=== PATIENT | female | born 1935 | race Caucasian/White ===

== ENCOUNTER 2021-09-14 13:14 | Emergency (ER) | payer MEDICARE, SELFPAY ==
[2021-09-14 13:47] VITALS: BP 157/73; PULSE 86; RESP 16; TEMP 37; O2SAT 99
--- NOTE | 2021-09-14 13:51 | ED.EXTPRO ---
HPI - Extremity Problem General Chief complaint: Extremity Injury, Upper Stated complaint: right arm pain Time Seen by Provider: 09/14/21 13:50 Source: patient Mode of arrival: ambulatory Limitations: no limitations History of Present Illness HPI Narrative: Ms. Lopez is a 86-year-old female patient presenting to the clinic today with complaints of right arm pain x3 days. She denies any known injury but she reports the pain is right over her biceps muscles. Related Data Home Medications Medication Instructions Recorded Confirmed apixaban 5 mg tablet (Eliquis) 1 tablet PO BID 09/14/21 09/14/21 Allergies Allergy/AdvReac Type Severity Reaction Status Date / Time No Known Allergies Allergy Verified 09/14/21 13:30 Review of Systems Review of Systems: Pertinent positives per HPI. Patient denies any fever, chills, rash, headache, visual changes, dizziness, cough, runny nose, sore throat, shortness of breath, chest pain, palpitations, nausea, vomiting, diarrhea, constipation, abdominal pain, or any urinary issues. [facility] Family History Family History Other Family history of malignant neoplasm Social History Social History Smoking status: Never smoker Alcohol intake: current Comments At the time of my signature, I reviewed and agree with the nursing past medical, surgical, social, and family history. There is no relevant family history pertinent to the patient complaint. Exam Narrative: General: Well-developed, well nourished, in no apparent distress Head: Normocephalic, atraumatic. Cardio: Regular rate and rhythm, s1 and s2 normal, no murmur appreciated. Resp: Clear to auscultation bilaterally, no rhonchi, rales, wheezing or rubs. Musculoskeletal: No deformity, tender to palpation over the biceps tendon with mild knot in this area, grossly normal range of motion, muscle strength strong and equal, peripheral pulse strong, no edema, no cyanosis, normal gait and station Course Course Emergency Course: Portions of this record may have been created with voice recognition software. Level of Care: Express Care Visit Vital Signs Vital signs: Vital Signs Temperature 37.0 C 09/14/21 13:47 Pulse Rate 86 09/14/21 13:47 Respiratory Rate 16 09/14/21 13:47 Blood Pressure 157/73 H 09/14/21 13:47 Pulse Oximetry 99 09/14/21 13:47 Oxygen Delivery Room Air 09/14/21 13:47 Temperature 37.0 C 09/14/21 13:47 Pulse Rate 86 09/14/21 13:47 Respiratory Rate 16 09/14/21 13:47 Blood Pressure 157/73 H 09/14/21 13:47 Pulse Oximetry 99 09/14/21 13:47 Oxygen Delivery Room Air 09/14/21 13:47 Vital signs reviewed MDM - Extremity (Nontraumatic) MDM Narrative Medical decision making narrative: At the time of assessment patient is resting comfortably on the exam table. I suspect the patient has biceps tendinitis. Supportive measures were discussed to the patient I will send in a prescription for some prednisone and have her follow-up with her PCP of symptoms persist to get an ultrasound completed. She voiced understanding of discharge instructions and agrees to the treatment plan. Discharge Plan Discharge Clinical Impression: Biceps tendinitis Patient Disposition: Home, Self-Care Condition: Stable Instructions: Antibiotic Form, Tendinitis (ED) Additional Instructions: Rest and apply ice to the affected area May use Aspercreme, blue emu, or lidocaine to the affected area Prednisone as prescribed May need ultrasound of this area if symptoms persist Follow-up with your PCP in 3 to 5 days if symptoms persist or sooner if they worsen Prescriptions: New prednisone 20 mg tablet 40 mg PO DAILY 5 Days Qty: 10 0RF No Action Eliquis 5 mg tablet 1 tablet PO BID Follow-up/Referrals: UNKNOWN,DOCTOR [Primary Care Provider] - Time
== END 2021-09-14 14:00 | disposition home or self-care (01) ==
PROVIDERS: Emergency Provider Nurse Practitioner Family
DX: M75.21 Bicipital tendinitis, right shoulder (principal); I48.91 Unspecified atrial fibrillation
CPT/HCPCS: 99213; G0463

== ENCOUNTER 2021-10-24 08:36 | Emergency (ER) | payer MEDICARE, SELFPAY ==
--- NOTE | ~2021-10-24 | XR_ITS ---
EXAMINATION: XR chest 2V DATE: 10/24/2021 09:02 INDICATION: Cough and congestion. TECHNIQUE: Frontal and lateral views of the chest were obtained. 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 No pleural effus ion or pneumothorax. The heart size is normal. IMPRESSION: 1. No acute cardiopulmonary disease. Reviewed, dictated and finalized at location A.
--- NOTE | 2021-10-24 08:41 | ED.URI ---
HPI - URI/Sore Throat General Chief Complaint: Upper Respiratory Infection Stated Complaint: Congestion Time Seen by Provider: 10/24/21 08:41 Source: patient Mode of arrival: ambulatory Limitations: no limitations History of Present Illness HPI Narrative: Ms. Lopez is an 86-year-old female patient presenting to the clinic today with complaints of cough and congestion since Thursday but has lost her voice prior to this but now her voice is coming back. She reports she started to have productive cough today with green phlegm. She denies any nasal drainage or sore throat. She denies any fever or chills. She states that her was just admitted on Thursday with double pneumonia. MD elicited complaint: sore throat and nasal congestion Related Data Home Medications Medication Instructions Recorded Confirmed apixaban 5 mg tablet (Eliquis) 1 tablet PO BID 09/14/21 09/14/21 Allergies Allergy/AdvReac Type Severity Reaction Status Date / Time No Known Allergies Allergy Verified 09/14/21 13:30 Review of Systems Review of Systems: Pertinent positives per HPI. Patient denies any fever, chills, rash, headache, visual changes, dizziness, cough, shortness of breath, chest pain, palpitations, nausea, vomiting, diarrhea, constipation, abdominal pain, or any urinary issues. [facility] Family History Family History Other Family history of malignant neoplasm Social History Social History Smoking status: Never smoker Alcohol intake: current Comments At the time of my signature, I reviewed and agree with the nursing past medical, surgical, social, and family history. There is no relevant family history pertinent to the patient complaint. Exam Narrative: General: Well-developed, well nourished, in no apparent distress Head: Normocephalic, atraumatic Eyes: Pupils equally round and reactive to light bilaterally, EOM intact, sclera and conjunctive clear, no discharge, lids normal Ears: TMs intact and clear, ear canals clear, no drainage, grossly hearing normal. Nose: Nares patent, no discharge, no inflammation, no sinus tenderness. Mouth: Oral pharynx without lesions or masses, good dentition, MMM. Neck: Supple, trachea midline, no enlargement of anterior or posterior cervical nodes, no thyroid masses or goiter palpable. Cardio: Regular rate and rhythm, s1 and s2 normal, no murmur appreciated. Resp: Right lower lobe crackles with very faint wheezing, no rhonchi or rubs Course Course Emergency Course: Portions of this record may have been created with voice recognition software. Level of Care: Express Care Visit Vital Signs Vital signs: Vital signs reviewed MDM - URI/Sore Throat MDM Narrative Medical decision making narrative: At the time of visit patient is resting comfortably on the exam table. Chest x-ray was completed in the clinic and was negative for any pneumonia. I suspect the patient has acute bronchitis and will send her in a prescription for some azithromycin and prednisone. Supportive measures were discussed with the patient she voiced understanding of discharge instructions and agrees to the treatment plan. Differential Diagnosis Differential diagnosis: Likely upper respiratory infection, sinusitis, viral infection, bronchitis, influenza, pharyngitis and other (COVID, pneumonia) ABG Data Interpretation: Close Chest X-Ray (Signed) Ady Bryan - 10/24/21 [facility] [address] XRay Report Signed Patient: Lori Lopez : 1935 MR#: [id number] Age/Sex: 86 / F Acct:[id number] Loc: [facility]? ? ADM Date: 10/24/21Attending Dr: Ordering Physician: James Pineda APRN Date of Service: 10/24/21 Procedure(s): XR chest 2V Accession Number(s)
[2021-10-24 08:49] VITALS: BP 145/99; PULSE 83; RESP 18; TEMP 36.4; O2SAT 98
== END 2021-10-24 09:10 | disposition home or self-care (01) ==
PROVIDERS: Emergency Provider Nurse Practitioner Family; PCP Family Medicine
DX: J40 Bronchitis, not specified as acute or chronic (principal); I48.91 Unspecified atrial fibrillation; M19.90 Unspecified osteoarthritis, unspecified site
CPT/HCPCS: 71046; 99213; G0463